=== PATIENT | female | born 1975 | race Caucasian/White ===

== ENCOUNTER → 2016-11-21 | Outpatient (CLI) | payer BC | END | disposition home or self-care (01) | LOC: GMAM 13:18 | PROVIDERS: ATTEND Family Medicine | DX: R29.898 Other symptoms and signs involving the musculoskeletal system (principal) ==

== ENCOUNTER → 2018-09-17 | Outpatient (CLI) | payer BC ==
--- NOTE | 2018-09-23 12:43 | MAM ---
EXAM DESCRIPTION: 3D Screening BILATERAL : Digital Mammography. CLINICAL HISTORY: 42 years Female SCREEN . No complaints or personal history of breast cancer. Remote family history of breast cancer. No childbirth. Postmenopausal 3 years. Currently on HRT. Lifetime risk of developing breast cancer (Tyrer-Cuzick model)(%): 11.0. COMPARISON: Baseline study at this facility. No prior reports available. TECHNIQUE: Bilateral CC and MLO projection full-field images, digital tomosynthesis mammographic technique. Bilateral digital 2-D full-field MLO images. CAD not available for tomosynthesis or 2-D images. FINDINGS: The breast parenchymal density pattern is: Scattered areas of fibroglandular density. No skin thickening or nipple retraction. Focal asymmetry in the posterior third of the left breast at the 12:00 position, approximately 6 cm from the nipple. Focal asymmetry in the posterior third of the right breast at the 5:00 position approximately 5 cm from the nipple. Not associated with microcalcifications. No new focal, stellate mass or density, , and no suspicious microcalcifications bilaterally. IMPRESSION: BI-RADS CATEGORY: 0 - INCOMPLETE- Need additional imaging evaluation. FOLLOW-UP: Recall for additional imaging: Bilateral targeted breast ultrasound in the regions indicated.. Written communication concerning the IMPRESSION and Follow-up, will be mailed to the patient and referring health care provider. Electronically signed by: Jignesh Haynes MD 09/23/2018 12:39 PM CDT
== END ==
LOC: MAMMO 13:30
PROVIDERS: ATTEND Family Medicine
DX: Z12.31 Encounter for screening mammogram for malignant neoplasm of breast (principal)

== ENCOUNTER → 2018-09-26 | Outpatient (CLI) | payer BC ==
--- NOTE | 2018-09-26 11:35 | CT ---
EXAM DESCRIPTION: CT ABDOMEN AND PELVIS WITH CONTRAST CLINICAL HISTORY: GROSS HEMATURIA COMPARISON: None Available. TECHNIQUE: CT of the abdomen and pelvis are performed during IV bolus administration of routine adult dose of nonionic iodinated IV contrast. No oral contrast FINDINGS: In the lower chest, the lung bases are clear. Heart size is normal. CT abdomen Gallbladder is surgically absent. The liver, spleen, pancreas, adrenal glands, stomach and kidneys are normal in appearance. No inflammation around the pancreas. Stone in the pelvis of the left kidney measures 7 mm with slight prominence of the intrarenal collecting system. This could be causing partial obstruction. No inflammation around the kidney or asymmetry of the nephrogram to suggest high-grade obstruction. No renal mass or cyst. Question additional tiny left renal calculi 1 to 2 mm in the upper and mid calyces anteriorly. No right renal stones or hydronephrosis. No ureteral stones on either side. No bowel dilatation to suggest obstruction. No free air or free fluid. CT pelvis Appendix appears normal. No inflammation around the cecum or terminal ileum or sigmoid colon. Bladder and distal ureters are negative for stones. Normal enhancement of pelvic vessels. No inguinal or lower pelvic adenopathy. Uterus and ovaries are unremarkable. Bone window images are negative for fracture or lytic lesion. Coronal and sagittal reformatted images confirm the findings. IMPRESSION: Stone in left renal pelvis 7 mm with mild distention of the left intrarenal collecting system. This exam was performed according to our departmental dose-optimization program, which includes automated exposure control, adjustment of the mA and/or kV according to patient size and/or use of iterative reconstruction technique. Total DLP equals 798.94 mGycm. Electronically signed by: Fortunato Beal MD 09/26/2018 11:32 AM CDT
== END ==
LOC: CT 09:32
PROVIDERS: ATTEND Family Medicine
DX: N20.0 Calculus of kidney (principal)

== ENCOUNTER → 2018-10-02 | Outpatient (CLI) | payer BC ==
--- NOTE | 2018-10-02 17:12 | US ---
EXAM DESCRIPTION: Breast,Bilateral: Ultrasound CLINICAL HISTORY: 42 yearsFemaleABNORMAL MAMMO COMPARISON: Bilateral screening digital breast tomosynthesis 09/17/2018. TECHNIQUE: Transcutaneous scanning of the bilateral breasts utilizing bravo-scale and Doppler modes. Scanning performed by the final inspection supervisor ; observation by Dr. Haynes. FINDINGS: Scanning of the undersurface of the anterior and mid right breast. Scanning at the 6:00 position. Echogenicity mostly anechoic with microlobulated margins and also duct-like structures. Mixed posterior acoustic signature. Overall dimensions 6.2 x 5.1 x 5.9 millimeters. Nonvascular. No dominant solid mass or distinct simple cyst. No parenchymal edema or large calcifications. No overlying skin changes. Scanning of the upper inner quadrant of the posterior left breast. Mixture of fibroglandular elements and fatty echotexture. At the 10:00 sector, 4 cm from the nipple is a circumscribed anechoic structure with echogenic pedraza, wider than tall orientation, and posterior acoustic enhancement. Nonvascular. This is consistent with a cyst. No dominant solid mass. No parenchymal edema or large calcifications. No overlying skin changes or abnormal vascularity. IMPRESSION: BI-RADS CATEGORY: 3 - PROBABLY BENIGN. Management: Short interval (6-month) follow-up diagnostic right breast digital mammography with targeted right breast ultrasound.. The FINDINGS and the FOLLOW-UP plan were reviewed in person with the patient after the examination. Written communication explaining the IMPRESSION and FOLLOW-UP will be mailed to the patient and referring care provider. Electronically signed by: Jignesh Haynes MD 10/02/2018 5:09 PM CDT
== END ==
LOC: MAMMO 15:44
PROVIDERS: ATTEND Family Medicine
DX: R92.8 Other abnormal and inconclusive findings on diagnostic imaging of breast (principal)

== ENCOUNTER → 2020-06-28 | Outpatient (CLI) | payer BC | LOC: GMAM 14:09 | PROVIDERS: ATTEND Family Medicine | DX: Z00.00 Encounter for general adult medical examination without abnormal findings (principal) ==

== ENCOUNTER → 2020-06-30 | Outpatient (CLI) | payer BC ==
--- NOTE | 2020-06-30 14:37 | CT ---
EXAM: Abdoment/Pelvis w/o Contrast INDICATION: lower abdominal pain . COMPARISON: None available TECHNIQUE: CT of the abdomen and pelvis was performed without IV contrast. Multiple axial images and multiplanar reconstructions were generated. This exam was performed according to our departmental dose-optimization program, which includes automated exposure control, adjustment of the mA and/or kV according to patient size and/or use of iterative reconstruction technique. FINDINGS: Visualized chest: Subtle mosaic attenuation in the lung bases, potentially related to small vessel or small airway disease. Heart size is within normal limits. Liver: Unremarkable appearance of the liver. Gallbladder: The gallbladder is surgically absent. Pancreas: Unremarkable appearance of the pancreas. Spleen: Unremarkable appearance of the spleen. Adrenal glands: Unremarkable appearance of the adrenal glands. Kidneys, ureters, bladder: No renal or ureteral stones are identified. No hydronephrosis. Unremarkable appearance of the visualized portions of the ureters. Unremarkable appearance of the urinary bladder. Stomach and bowel: Unremarkable appearance of the stomach. No dilated loops of small bowel. Nondistention of the distal transverse, descending, and sigmoid colon mildly limits the evaluation of the colon. However, there is question of subtle hazy pericolonic stranding near the junction of the descending and sigmoid colon, potentially representing mild diverticulitis. The appendix is identified and appears normal. Uterus and adnexa: Unremarkable appearance of the uterus. No adnexal mass. Peritoneum: No free fluid. No pneumoperitoneum. Lymph nodes: No lymphadenopathy. Vasculature: Unremarkable appearance of the visualized major vascular structures. Bones: No acute fracture. No destructive osseous lesion. Several bone islands are noted in the hips and pelvis. Body wall: Unremarkable appearance of the body wall and remainder of the visualized soft tissues. IMPRESSION: 1. Evaluation of the colon is mildly limited by underdistention and areas of contraction. However, there is question of some subtle pericolonic inflammatory stranding at the junction of the descending and sigmoid colon, potentially representing mild diverticulitis. 2. No renal or ureteral stones. 3. Additional findings as described above. Electronically signed by: Meghana Mcintyre MD 06/30/2020 2:36 PM [employer]
== END ==
LOC: CT 09:00
PROVIDERS: ATTEND Family Medicine
DX: R10.30 Lower abdominal pain, unspecified (principal); K63.9 Disease of intestine, unspecified